=== PATIENT | male | born 1965 | race Caucasian/White ===

== ENCOUNTER 2017-04-27 12:54 | Emergency (ER) | payer OTHER ==
[2017-04-27 13:07] VITALS: TEMP 97
[2017-04-27] MEDS ORDERED: RX INFO: IV CONTRAST WAS GIVEN 1 EACH MISC MISCELLANE PRN (13:26)
[2017-04-27] MEDS ORDERED: SODIUM CHLORIDE 0.9% 1,000 ML IV STA ×2 (13:26)
[2017-04-27] MEDS ORDERED: HYDROmorphone 2 MG/ML 1 ML SYRINGE IVP STA (13:26)
[2017-04-27] MEDS ORDERED: ONDANSETRON 4 MG/2 ML VIAL IVP STA (13:26)
--- NOTE | 2017-04-27 13:36 | ED ---
General Adult HPI - General Chief complaint: Abdominal Pain Stated complaint: abdominal pain Time Seen by Provider: 04/27/17 13:15 Source: patient, EMS, RN notes reviewed, old records reviewed Mode of arrival: EMS Limitations: no limitations - History of Present Illness Initial comments: 51-year-old male presents for evaluation of severe upper abdominal pain which began suddenly approximately 30 minutes prior to arrival. Patient was brought in by EMS. He did have some nausea associated with this no vomiting. Patient had right inguinal hernia repair approximately one month ago. This was performed at an outside hospital. Past medical history of pancreatitis. Patient had been doing well yesterday and this morning prior to the onset of this pain. Pain was sharp and severe in nature. Patient also complains of some right shoulder pain associated with his abdominal pain. Denies central chest pain, no shortness of breath. No preceding fever. No diarrhea. Patient does admit to alcohol consumption, states he drank approximately 8 beers yesterday, otherwise he is a social drinker. - Related Data Home Medications Medication Instructions Recorded Confirmed No Known Home Medications [No 04/27/17 04/27/17 Known Home Medications] Allergies Allergy/AdvReac Type Severity Reaction Status Date / Time No Known Allergies Allergy Verified 04/27/17 13:12 Review of Systems ROS Statement: Those systems with pertinent positive or pertinent negative responses have been documented in the HPI. ROS Other: All systems not noted in ROS Statement are negative. Past Medical History Past Medical History: No Reported History Additional Past Medical History / Comment(s): Pancreatitis September 2016; Pancreatic cyst of unknown etiology History of Any Multi-Drug Resistant Organisms: None Reported Additional Past Surgical History / Comment(s): hernia surgery Past Anesthesia/Blood Transfusion Reactions: No Reported Reaction Past Psychological History: No Psychological Hx Reported Smoking Status: Current every day smoker Past Alcohol Use History: None Reported, Occasional Past Drug Use History: None Reported - Past Family History Father History Unknown: Yes General Exam Limitations: no limitations General appearance: alert, in no apparent distress Head exam: Present: atraumatic, normocephalic Eye exam: Present: normal appearance, PERRL ENT exam: Present: mucous membranes dry Neck exam: Present: normal inspection. Absent: tenderness, meningismus Respiratory exam: Present: normal lung sounds bilaterally. Absent: respiratory distress Cardiovascular Exam: Present: regular rate, normal rhythm GI/Abdominal exam: Present: tenderness, guarding (firm abdomen throughout), rigid Extremities exam: Present: normal inspection, normal capillary refill. Absent: pedal edema Back exam: Present: normal inspection, full ROM Neurological exam: Present: alert, oriented X3, CN II-XII intact. Absent: motor sensory deficit Psychiatric exam: Present: normal affect, normal mood Skin exam: Present: warm, dry, intact. Absent: cyanosis, diaphoretic Course Vital Signs 04/27/17 04/27/17 04/27/17 13:04 14:07 15:06 Temperature 97.0 F L Pulse Rate 61 60 82 Respiratory 18 18 18 Rate Blood Pressure 113/74 120/71 137/86 O2 Sat by Pulse 95 99 98 Oximetry EKG Findings - EKG Comments: EKG Findings:: EKG shows normal sinus rhythm, ventricular rate 64, ID 146, castration 92, QTC 435, no signs of ischemia Medical Decision Making - Medical Decision Making 51-year-old male history of pancreatitis presenting with severe abdominal pain. Patient has diffusely tender, rigid abdomen on initial evaluation. CT is obtained, CT shows severe acute pancreatitis, concern for liquid fact of necrosis of the pancreas. Lipase is greater than 20,000, amylase 2852. White blood cell count elevated at 17.4, lactic acid 1.[address] findings case is discussed with general surgery on-call Dr. Delgado, she recommends transfer to higher level of care. Patient has seen general surgery at [facility] in [place], he will be transferred for further treatment and evaluation. Patient is NPO, continued on IV fluids and pain medication. Diagnosis: Acute pancreatitis with concern for liquefactive necrosis. Disposition: Transfer to [facility] - Lab Data Result diagrams: 04/27/17 14:10 04/27/17 14:10 Lab Results 04/27/17 04/27/17 04/27/17 Range/Units 14:10 14:10 14:10 WBC 17.4 H (3.8-10.6) k/uL RBC 5.28 (4.30-5.90) m/uL Hgb 15.6 (13.0-17.5) gm/dL Hct 46.3 (39.0-53.0) % MCV 87.6 (80.0-100.0) fL MCH 29.5 (25.0-35.0) pg MCHC 33.7 (31.0-37.0) g/dL RDW 12.3 (11.5-15.5) % Plt Count 213 (150-450) k/uL Neutrophils % 86 % Lymphocytes % 8 % Monocytes % 3 % Eosinophils % 2 % Basophils % 0 % Neutrophils # 14.9 H (1.3-7.7) k/uL Lymphocytes # 1.5 (1.0-4.8) k/uL Monocytes # 0.6 (0-1.0) k/uL Eosinophils # 0.3 (0-0.7) k/uL Basophils # 0.0 (0-0.2) k/uL PT (9.0-12.0) sec INR (<1.2) APTT (22.0-30.0) sec Sodium 142 (137-145) mmol/L Potassium 4.1 (3.5-5.1) mmol/L Chloride 103 (98-107) mmol/L Carbon Dioxide 26 (22-30) mmol/L Anion Gap 13 mmol/L BUN 15 (9-20) mg/dL Creatinine 1.11 (0.66-1.25) mg/dL Est GFR (MDRD) Af Amer >60 (>60 ml/min/1.73 sqM) Est GFR (MDRD) Non-Af >60 (>60 ml/min/1.73 sqM) Glucose 110 H (74-99) mg/dL Plasma Lactic Acid Terell (0.7-2.0) mmol/L Calcium 10.0 (8.4-10.2) mg/dL Total Bilirubin 0.4 (0.2-1.3) mg/dL AST 28 (17-59) U/L ALT 41 (21-72) U/L Alkaline Phosphatase 89 (38-126) U/L Total Creatine Kinase 108 (55-170) U/L CK-MB (CK-2) 0.7 (0.0-2.4) ng/mL CK-MB (CK-2) Rel Index 0.6 Troponin I <0.012 (0.000-0.034) ng/mL Total Protein 7.4 (6.3-8.2) g/dL Albumin 4.7 (3.5-5.0) g/dL Amylase 2852 H* (30-110) U/L Lipase >58535 H (23-300) U/L 04/27/17 04/27/17 Range/Units 14:10 14:10 WBC (3.8-10.6) k/uL RBC (4.30-5.90) m/uL Hgb (13.0-17.5) gm/dL Hct (39.0-53.0) % MCV (80.0-100.0) fL MCH (25.0-35.0) pg MCHC (31.0-37.0) g/dL RDW (11.5-15.5) % Plt Count (150-450) k/uL Neutrophils % % Lymphocytes % % Monocytes % % Eosinophils % % Basophils % % Neutrophils # (1.3-7.7) k/uL Lymphocytes # (1.0-4.8) k/uL Monocytes # (0-1.0) k/uL Eosinophils # (0-0.7) k/uL Basophils # (0-0.2) k/uL PT 9.8 (9.0-12.0) sec INR 1.0 (<1.2) APTT 20.6 L (22.0-30.0) sec Sodium (137-145) mmol/L Potassium (3.5-5.1) mmol/L Chloride (98-107) mmol/L Carbon Dioxide (22-30) mmol/L Anion Gap mmol/L BUN (9-20) mg/dL Creatinine (0.66-1.25) mg/dL Est GFR (MDRD) Af Amer (>60 ml/min/1.73 sqM) Est GFR (MDRD) Non-Af (>60 ml/min/1.73 sqM) Glucose (74-99) mg/dL Plasma Lactic Acid Terell 1.7 (0.7-2.0) mmol/L Calcium (8.4-10.2) mg/dL Total Bilirubin (0.2-1.3) mg/dL AST (17-59) U/L ALT (21-72) U/L Alkaline Phosphatase (38-126) U/L Total Creatine Kinase (55-170) U/L CK-MB (CK-2) (0.0-2.4) ng/mL CK-MB (CK-2) Rel Index Troponin I (0.000-0.034) ng/mL Total Protein (6.3-8.2) g/dL Albumin (3.5-5.0) g/dL Amylase (30-110) U/L Lipase (23-300) U/L Disposition Clinical Impression: Acute pancreatitis, Acute necrosis of pancreas Disposition: OTHER INSTITUTION NOT DEFINED Condition: Serious Referrals: Nonstaff,Physician [Primary Care Provider] - 1-2 days - Out of Hospital Transfer - Req. Specs Out of Hospital Transfer - Requested Specifics: Surgical ICU (transfer to [facility])
[2017-04-27 14:29] LABS: Basophils % (A) 0 %; Eosinophils # (A) 0.3 k/uL (0-0.7); Eosinophils % (A) 2 %; HCT 46.3 % (39.0-53.0); HGB 15.6 gm/dL (13.0-17.5); Lymphocytes # (A) 1.5 k/uL (1.0-4.8); Lymphocytes % (A) 8 %; MCH 29.5 pg (25.0-35.0); MCHC 33.7 g/dL (31.0-37.0); MCV 87.6 fL (80.0-100.0); Monocytes # (A) 0.6 k/uL (0-1.0); Monocytes % (A) 3 %; Neutrophils # (A) 14.9 k/uL (1.3-7.7); Neutrophils % (A) 86 %; Platelet Count 213 k/uL (150-450); RBC 5.28 m/uL (4.30-5.90); RDW 12.3 % (11.5-15.5); WBC 17.4 k/uL (3.8-10.6)
[2017-04-27 14:41] LABS: ALT 41 U/L (21-72); AST 28 U/L (17-59); Albumin 4.7 g/dL (3.5-5.0); Alkaline Phosphatase 89 U/L (38-126); Anion Gap 13 mmol/L; Blood Urea Nitrogen 15 mg/dL (9-20); Carbon Dioxide 26 mmol/L (22-30); Chloride 103 mmol/L (98-107); Glucose 110 mg/dL (74-99); Potassium 4.1 mmol/L (3.5-5.1); Sodium 142 mmol/L (137-145); Total Bilirubin 0.4 mg/dL (0.2-1.3); Total Protein 7.4 g/dL (6.3-8.2)
[2017-04-27 14:42] LABS: Prothrombin Time 9.8 sec (9.0-12.0)
[2017-04-27 14:52] LABS: Creatine Kinase 108 U/L (55-170); Partial Thromboplastin Time 20.6 sec (22.0-30.0)
[2017-04-27 15:05] LABS: Creatine Kinase MB 0.7 ng/mL (0.0-2.4); Troponin I <0.012 ng/mL (0.000-0.034)
--- NOTE | 2017-04-27 15:06 | CT ---
EXAMINATION TYPE: CT abdomen pelvis w con DATE OF EXAM: 04/27/2017 COMPARISON: CT abdomen and pelvis April 10, 2017 HISTORY: Epigastric abd pain following a hernia repair surgery x3 weeks ago. CT DLP: 599.5 mGycm, Automated Exposure Control for Dose Reduction was Utilized. CONTRAST: CT scan of the abdomen and pelvis is performed without oral but with IV Contrast, patient injected wi th 100ml mL of Omnipaque 300. FINDINGS: LUNG BASES: There is emphysematous change with dependent atelectasis in both lung bases. LIVER/GB: No significant abnormality is appreciated. PANCREAS: There is continued heterogeneous enlargement of the pancreas with worsening ill-defined corey rounding fluid now extending from pancreatic tail through the head. Some areas of low density suspect ed nonenhancement near the head/uncinate process junction axial image 30 are redemonstrated. No new w ell-formed fluid collections are seen. SPLEEN: No significant abnormality is seen. ADRENALS: No significant abnormality is seen. KIDNEYS: No significant abnormality is seen. BOWEL: Sigmoid colonic diverticulosis redemonstrated. There is no convincing evidence for acute diver ticulitis. There is debris filled stomach. There is new mild to moderate wall thickening involving ga stric antrum as well as first, second, and proximal third portion of duodenum felt reactive due to pr ogressive pancreatitis. PROSTATE/SEMINAL VESICLES: No gross abnormality seen. LYMPH NODES: No greater than 1cm abdominal or pelvic lymph nodes are appreciated. OSSEOUS STRUCTURES: There is transitional L5 type vertebra. There is moderate disc space narrowing at L4-L5 level with anterior spurring. There is endplate sclerosis and spurring left aspect. OTHER: In the right groin there is now elongated thin-walled fluid collection measuring 7 cm transver sely by 0.8 cm AP diameter by roughly 5 cm craniocaudal dimension axial image 75 and coronal image 16 now identified. Adjacent anterior scar is redemonstrated. There is interval resolution of subcutaneo us air. There is partial visualization of moderate-sized right scrotal fluid collection or hydrocele similar to prior. There is slightly smaller left scrotal fluid collection or hydroceles seen inferior to this . IMPRESSION: 1. Interval resolution of subcutaneous air right groin region. There is now thin-walled elongated flu id collection at this level as detailed above could reflect postsurgical seroma, other etiologies suc h as small subcutaneous abscess are not excluded. Correlate clinically. 2. There is further progression of moderate to severe acute pancreatitis with worsening ill-defined f luid and surrounding inflammatory change. Area of low density superior aspect of the head and uncinat e process junction remains present without significant interval change. I favor an area of nonenhance ment and thus liquefactive necrosis needs to BE considered. Developing focal thin-walled fluid collec tion is not excluded. Correlate clinically and with pancreatic lab values.
[2017-04-27 15:16] LABS: Amylase 2852 U/L (30-110)
[2017-04-27 15:23] LABS: Lipase >20000 U/L (23-300)
[2017-04-27] MEDS ORDERED: HYDROmorphone 1 MG/ML 1 ML SYRINGE IVP STA (16:21)
[2017-04-27 16:26] VITALS: RESP 20
[2017-04-27 17:03] VITALS: BP 135/80; PULSE 80
[2017-04-27 17:23] LABS: Appearance,Urine Clear (Clear); Bacteria,Urine Rare /hpf; Bilirubin,Urine Negative (Negative); Blood,Urine Small (Negative); Color,Urine Yellow; Glucose,Urine (UA) Negative (Negative); Ketones,Urine Negative (Negative); Leukocyte Esterase,Urine Negative (Negative); Nitrite,Urine Negative (Negative); Protein,Urine Trace (Negative); RBC,Urine 1 /hpf (0-5); Urobilinogen,Urine <2.0 mg/dL (<2.0); WBC,Urine 1 /hpf (0-5)
== END 2017-04-27 17:15 | disposition short-term general hospital (02) ==
LOC: EC 12:54
DX: K85.92 Acute pancreatitis with infected necrosis, unspecified (principal); D72.829 Elevated white blood cell count, unspecified; M25.511 Pain in right shoulder; F17.200 Nicotine dependence, unspecified, uncomplicated
CPT/HCPCS: 36415; 93005; 80053; 82150; 82550; 82553; 83605; 83690; 84484; 85025; 85610; 85730; 81001; 74177; 99285; 96374; 96375; 96376; 96361 ×3; J1170 ×2; J2405; Q9967